=== PATIENT | male | born 1960 | race Caucasian/White ===

== ENCOUNTER 2024-11-26 06:17 | Day surgery (SDC) | payer OTHER, SELFPAY | END 2024-11-26 11:34 | disposition home or self-care (01) | LOC: GI 06:17 | PROVIDERS: ATTENDING PHYSICIAN Specialist | DX: Z12.11 Encounter for screening for malignant neoplasm of colon (principal); D12.3 Benign neoplasm of transverse colon; K63.5 Polyp of colon; K57.30 Diverticulosis of large intestine without perforation or abscess without bleeding; K22.89 Other specified disease of esophagus; K21.00 Gastro-esophageal reflux disease with esophagitis, without bleeding; R13.10 Dysphagia, unspecified | CPT/HCPCS: 45380; 43239; 88305 ==